=== PATIENT | male | born 1960 | race Caucasian/White ===

== ENCOUNTER 2024-08-14 21:58 | Emergency (ER) | payer BC | END 2024-08-14 23:41 | disposition home or self-care (01) | LOC: MW.ED 21:58 | DX: H57.8A1 Foreign body sensation, right eye (principal); I10 Essential (primary) hypertension; K21.9 Gastro-esophageal reflux disease without esophagitis; Z88.5 Allergy status to narcotic agent; Z79.899 Other long term (current) drug therapy | CPT/HCPCS: 99283 ==

== ENCOUNTER 2024-11-08 18:04 | Emergency (ER) | payer BC ==
[2024-11-08] MEDS: Tetracaine HCl/PF 0.5% 4 ML Bottle EYERT ONE (18:29)
[2024-11-08] MEDS: Fluorescein 1 MG Ophth Strip EYERT ONE (18:30)
[2024-11-08] MEDS: Polymyxin B/Trimethoprim 10 ML Bottle EYERT ONE (19:33)
== END 2024-11-08 19:41 | disposition home or self-care (01) ==
LOC: MW.ED 18:04
DX: S05.01XA Injury of conjunctiva and corneal abrasion without foreign body, right eye, initial encounter (principal); I10 Essential (primary) hypertension; K21.9 Gastro-esophageal reflux disease without esophagitis; E66.9 Obesity, unspecified; Z79.899 Other long term (current) drug therapy; Z88.5 Allergy status to narcotic agent; Z88.8 Allergy status to other drugs, medicaments and biological substances; Z79.01 Long term (current) use of anticoagulants; Z68.34 Body mass index [BMI] 34.0-34.9, adult
CPT/HCPCS: 99283; A9270-GY; J3490